=== PATIENT | female | born 2000 | race Two or more races ===

== ENCOUNTER 2019-10-26 12:55 | Emergency (ER) | payer MEDICAID ==
[~2019-10-26] VITALS: Ht 170.2 cm; Wt 73.0 kg
[2019-10-26 15:37] VITALS: BP 120/67
== END 2019-10-26 15:39 | disposition home or self-care (01) ==
LOC: ER 12:55
DX: T19.2XXA Foreign body in vulva and vagina, initial encounter (principal); X58.XXXA Exposure to other specified factors, initial encounter
CPT/HCPCS: 99283; 99284